=== PATIENT | female | born 1970 | race Two or more races ===

== ENCOUNTER → 2021-06-17 | Emergency (ER) | payer OTHER ==
[~2021-06-17] VITALS: Ht 172.7 cm; Wt 68.0 kg
[~2021-06-17] MED LIST: BACTRIM DS TAB1 EACH PO; CLEOCIN HCL300 MG PO; FLAGYL500MG PO; INTESTINEX680 M2 PO; LEVOFLOXACIN750 MG PO
== END | disposition home or self-care (01) ==
LOC: ER 18:43
DX: L03.115 Cellulitis of right lower limb (principal); S71.151S Open bite, right thigh, sequela; W54.0XXS Bitten by dog, sequela

== ENCOUNTER 2021-06-24 15:15 | Emergency (ER) | payer OTHER ==
[~2021-06-24] VITALS: Ht 172.7 cm; Wt 68.0 kg
[~2021-06-24 15:15] MED LIST changes: -FLAGYL500MG PO; -LEVOFLOXACIN750 MG PO
[2021-06-24] MEDS ORDERED: LEVOFLOXACIN750 MG PO (21:05)
[2021-06-24] MEDS ORDERED: FLAGYL500MG PO (21:05)
== END 2021-06-24 21:32 | disposition home or self-care (01) ==
LOC: ER 15:15
DX: T78.49XA Other allergy, initial encounter (principal); T36.8X5A Adverse effect of other systemic antibiotics, initial encounter; Y92.89 Other specified places as the place of occurrence of the external cause; L03.115 Cellulitis of right lower limb; T81.49XA Infection following a procedure, other surgical site, initial encounter